=== PATIENT | female | born 1980 | race African-American/Black ===

== ENCOUNTER 2021-03-08 06:53 | Emergency (ER) | payer MEDICAID ==
[~2021-03-08] VITALS: Ht 165.1 cm; Wt 91.0 kg
[2021-03-08 07:34] LABS: BASOPHILS % 0.3 % (0.0-2.0); EOSINOPHILS % 1.6 % (0.0-5.0); HEMATOCRIT. 39.1 % (36.0-48.0); HEMOGLOBIN. 13.1 g/dL (12.0-16.0); LYMPHOCYTES % 13.4 % (20.0-50.0); MEAN CORPUSCULAR HEMOGLOBIN 29.1 pg (28.0-32.0); MEAN CORPUSCULAR VOLUME 87.1 fL (81.0-99.0); MEAN PLATELET VOLUME 10.7 fl (7.4-10.4); MONOCYTES % 6.6 % (2.0-8.0); NEUTROPHILS % 78.1 % (40.0-76.0); PLATELET 189 x1000/uL (130-400); RED BLOOD CELL COUNT 4.49 mill/uL (4.2-5.4); RED CELL DISTRIBUTION WIDTH 13.1 % (11.6-14.6)
[2021-03-08 07:40] LABS: CHLORIDE 101 mEq/L (98-107)
[2021-03-08] MEDS ORDERED: IPRATROPIUM BROMIDE (0.02%) 0.5MG/2.5ML NEB HHN STA (09:22)
[2021-03-08] MEDS ORDERED: ALBUTEROL (0.083%) 2.5MG/3ML NEB HHN STA (09:22)
[2021-03-08] MEDS ORDERED: AZITHROMYCIN 500 MG TABLET PO STA (09:22)
[2021-03-08] MEDS ORDERED: PREDNISONE 20MG TABLET PO STA (09:22)
[2021-03-08] MEDS ORDERED: ALBUTEROL (0.083%) 2.5MG/3ML NEB ONE (10:28)
[2021-03-08] MEDS ORDERED: IPRATROPIUM BROMIDE (0.02%) 0.5MG/2.5ML NEB ONE (10:29)
[2021-03-08] MEDS ORDERED: IBUPROFEN 600MG TABLET PO ONE (10:45)
[2021-03-08] MEDS ORDERED: P50 MT (11:11)
[2021-03-08] MEDS ORDERED: ALBU90AE INH (11:11)
[2021-03-08] MEDS ORDERED: AZIT250T12 MT (11:11)
[2021-03-08 11:27] VITALS: BP 132/88
== END 2021-03-08 11:28 | disposition home or self-care (01) ==
LOC: ER 07:24
DX: J45.901 Unspecified asthma with (acute) exacerbation (principal); I10 Essential (primary) hypertension; E11.9 Type 2 diabetes mellitus without complications; J45.909 Unspecified asthma, uncomplicated; F17.210 Nicotine dependence, cigarettes, uncomplicated
CPT/HCPCS: 36415; 71045; 80053; 83880; 84484; 85025; 93005; 94640; 99285; J7512; Z7610